=== PATIENT | male | born 1940 | race Caucasian/White ===

== ENCOUNTER 2017-02-06 08:49 | Outpatient (CLI) | payer MEDICARE, OTHER ==
[2017-02-06] MEDS ORDERED: Gadobenate Dimeglumine 529 MG/1 ML (20ML VIAL) ONE (09:00)
--- NOTE | 2017-02-06 11:41 | MRI ---
MRI OF THE BRAIN WITH AND WITHOUT CONTRAST: Comparison: 11-20-14 History: Severe headache which starts in the back of the left ear and proceeds to the top of his hea d for two weeks. Technique: Multiplanar, multisequence MR images were obtained of the brain without and with IV contr ast. FINDINGS: There are scattered foci of high FLAIR signal in the subcortical and periventricular white matter, l ikely secondary to small vessel ischemic disease. No restricted diffusion is seen to suggest an acut e infarction. No abnormal enhancement is seen on this examination. There is no evidence of hydroceph alus, intracranial hemorrhage, or extraaxial fluid collection. The expected flow voids are present. The corpus callosum, pituitary, and craniocervical junction are unremarkable. IMPRESSION: Small vessel ischemic disease without acute intracranial abnormality. POS: [facility]
== END 2017-02-06 08:50 | disposition home or self-care (01) ==
LOC: SCSMRI 08:49
PROVIDERS: ATTEND Otolaryngology Otolaryngic Allergy
DX: R51 Headache (principal); R68.84 Jaw pain; I67.82 Cerebral ischemia
CPT/HCPCS: 70553

== ENCOUNTER 2017-02-14 09:06 | Outpatient (CLI) | payer MEDICARE ==
[~2017-02-14 09:06] MED LIST: Iopamidol 370 76% 100 ML VIAL ONE
--- NOTE | 2017-02-14 11:48 | CT ---
CONTRAST ENHANCED CT IMAGES OF SOFT TISSUE NECK: History: Headache. Patient with left jaw pain. FINDINGS: Contrast enhanced images of the soft tissue neck demonstrate atherosclerotic calcification of the ao rtic arch. Calcifications are also seen in the right brachiocephalic artery. Bilateral distal verteb ral artery calcification is seen. Bilateral distal common and proximal internal carotid artery calci fications seen. No significant evidence of pulmonary parenchymal lesions seen. No definite evidence of superior mediastinal or neck lymphadenopathy seen. Some heterogeneity is seen in the right and left thyroid lobes. Patient has had ACDF with fusion of the C3-4 levels. Lower cervical changes of spondylosis seen. No significant evidence of parotid or carotid space masses or lesions seen. IMPRESSION: Vertebral, aortic and carotid calcifications. POS: [facility]
== END 2017-02-14 09:07 | disposition home or self-care (01) ==
LOC: SCSCT 09:06
PROVIDERS: ATTEND Otolaryngology Otolaryngic Allergy
DX: R68.84 Jaw pain (principal); R51 Headache; I70.0 Atherosclerosis of aorta
CPT/HCPCS: 70491

== ENCOUNTER 2017-03-30 05:40 | Day surgery (SDC) | payer MEDICARE ==
[2017-03-23 09:58] VITALS: BMI 26.5
--- NOTE | 2017-03-30 01:07 | HP ---
HISTORY OF PRESENT ILLNESS: Mr. Hendricks is a 76-year-old man is known to us for previous lumbar L4-L5 synovial cyst resection earlier this spring who returns now with recurrence on the right. According to MRI from [facility], he has had this aspirated once unfortunately, it did not help a great deal a nd is ready to move forward with the surgical treatment to fix this. PAST MEDICAL HISTORY: Hypertension, hypercholesterolemia, erectile dysfunction, neck pain, hearing l oss, esophageal stricture. CURRENT MEDICATIONS: Aspirin, calcium, lovastatin, Mobic, Centrum, vitamin D, and lisinopril. PAST SURGICAL HISTORY: ACDF, lumbar diskectomy and lumbar decompression, and lumbar synovial cystect meghan. PHYSICAL EXAMINATION: The patient is alert and oriented x3. Gait is antalgic. Lower extremity analy r exam is normal. ASSESSMENT: Lumbar synovial cyst and radiculopathy. PLAN: Dr. Sandoval met with the patient, reviewed imaging and ultimately advocated for a reoperation at L4-L5 with resection of synovial cyst. He explained to the patient the risks, benefits, and alterna tives to the procedure. The patient expressed understanding and would like to move forward with surg dominic as discussed. I do believe the patient is mentally competent and capable of making medical decis ions for himself and we will move forward with surgery as planned. Andry Elkins PA-C is dictating under Dr. Sandoval.
[2017-03-30] MEDS ORDERED: Thrombin 5000 UNITS/5 ML VIAL ONE (06:16)
[2017-03-30] MEDS ORDERED: Bupivacaine/Epinephrine 0.25% 30 ML VIAL ONE (06:16)
[2017-03-30] MEDS ORDERED: CEFAZOLIN/Water 2 GM/20 ML SYRINGE ONE ×2 (06:25→11:29)
[2017-03-30] MEDS ORDERED: Fentanyl 250 MCG/5 ML VIAL ONE (06:44)
[2017-03-30] MEDS ORDERED: Glycopyrrolate 0.2 MG/ML 5 ML SYRINGE ONE (07:05)
[2017-03-30] MEDS ORDERED: PHENYLEPHRINE-NS 100 MCG/ML 10 ML SYRINGE ONE (07:05)
[2017-03-30] MEDS ORDERED: Ondansetron HCl/PF 4 MG/2 ML Vial ONE (07:05)
[2017-03-30] MEDS ORDERED: Lidocaine 2% PF 10 ML AMP (For Epidural Use) ONE (07:05)
[2017-03-30] MEDS ORDERED: Propofol 200 MG/20 ML VIAL ONE (07:05)
[2017-03-30] MEDS ORDERED: Fentanyl 100 MCG/2 ML VIAL ONE ×2 (08:33→08:58)
--- NOTE | 2017-03-30 08:46 | OP ---
DATE OF PROCEDURE: 03/30/2017 SURGEON: Julio Sandoval M.D. [place] SUPERVISOR: Andry Elkins PA-C INDICATION: Pain. DIAGNOSIS: Lumbar radiculopathy. PROCEDURE: Reoperation of right L4-5 facetectomy, synovial cystectomy. ANESTHESIA: General. TECHNIQUE: The patient was brought into the operating room and placed under general anesthesia. He was flipped from a supine to a prone position on the operating room table. His old linear incision w as identified and prepped and draped in the usual sterile fashion. Following appropriate operative p ause, the incision was created. The soft tissues were swept right of midline. A self-retaining retr actor was placed in the wound for optimal exposure. After confirming the appropriate level, C-arm fl uoroscopy, a high-speed cutting drill bit as well as 2, 3 and 4 mm Kerrisons were used to identify th e facet joint at L4-5 and what remained was removed. Synovial cyst was identified and also resected. At the end of procedure, the lateral recesses as well as descending and exiting nerve root at that level where decompressed and free of compression. There was scar present from the prior operative pr ocedure which appeared to be noncontributory. The patient's wound was irrigated. Hemostasis was regine ntained throughout. The wound was then closed in anatomic layers and a pressure dressing was applied . There were no known procedural complications.
[2017-03-30] MEDS ORDERED: Ketorolac Tromethamine 30 MG/ML VIAL ONE (09:06)
[2017-03-30] MEDS ORDERED: Morphine 4 MG/ML VIAL ONE (09:37)
[2017-03-30] MEDS ORDERED: tiZANidine HCl 4 MG TAB ONE ×2 (09:50→09:56)
[2017-03-30] MEDS ORDERED: Acetaminophen/Codeine 30-300mg Tablet ONE (11:14)
== END 2017-03-30 11:47 | disposition home or self-care (01) ==
LOC: SDC 05:40
PROVIDERS: ATTEND Neurological Surgery
PROC: 00BY0ZX Excision of Lumbar Spinal Cord, Open Approach, Diagnostic (ICD-10-PCS; principal; 2017-03-30)
DX: M71.38 Other bursal cyst, other site (principal); M54.16 Radiculopathy, lumbar region; I10 Essential (primary) hypertension; E78.00 Pure hypercholesterolemia, unspecified; N52.9 Male erectile dysfunction, unspecified; H91.90 Unspecified hearing loss, unspecified ear; Z98.1 Arthrodesis status
CPT/HCPCS: 76001; 96374; J1170; J1885; J2001; J2270; J2405; J2704; J3010

== ENCOUNTER 2017-07-10 09:08 | Outpatient (CLI) | payer MEDICARE ==
--- NOTE | 2017-07-10 10:30 | RAD ---
THREE VIEWS LUMBAR SPINE INCLUDING FLEXION AND EXTENSION VIEWS: Date: 07-10-17 History: Lower back pain. Comparison: MRI lumbar spine 08-20-15. FINDINGS: There appear to be five non-rib bearing lumbar type vertebral bodies based on lateral imaging. There is Grade I anterolisthesis of L4 on L5 with the degree of listhesis on flexion measuring 7 mm and on extension the anterolisthesis resolves. There is a compression fracture of the L2 vertebral bodies re lated to remote compression fracture as seen on prior study in 2016. The remaining vertebral body hei ghts are within normal limits. No additional level of subluxation is seen. Multilevel osteophytes are seen anteriorly. Laminectomy defect is seen posteriorly at the L4-5 level. Vascular calcification is seen in the abdominal aorta. IMPRESSION: 1. Grade I anterolisthesis of L4 on L5 with evidence of abnormal translational motion between the fle xion and extension views with correction of the anterolisthesis on extension. 2. Remote compression fracture L2 vertebral body. 3. Degenerative changes of the lumbar spine with post-surgical change at the L4-5 level related to la minectomy defect. 4. Vascular calcifications. POS: [facility]
--- NOTE | 2017-07-10 13:18 | CT ---
TWO VIEWS LUMBAR SPINE WITHOUT CONTRAST: HISTORY: Low back pain. COMPARISON: MRI lumbar spine 12/21/16. FINDINGS: The adrenal glands are unremarkable. Visualized portions of the kidneys are unremarkable. Paraspinal musculature is symmetric. No atrophy. Moderate degenerative disease of the SI joints. Severe end plate compression deformity at L2 is similar. Prior partial laminectomy changes of the L4 and L5 spinous processes. There is narrowing of the L2-3 and L3-4 interspinous space with sclerosis of the spinous processes and subchondral cyst formation. No acute fracture. No acute malalignment. The aortic contour is nonaneurysmal, although it is heavi ly calcified. There are posterior disk-osteophyte complexes throughout the lumbar spine which are similar to the pr ior MRI examination with multiple areas of mild spinal canal narrowing. The neural foraminal and spi nal canal narrowing has not progressed from the comparison MRI exam. IMPRESSION: 1. Similar appearance to the healing/healed compression deformity at L2. 2. No progressive worsening neural foraminal or spinal canal stenosis. 3. Lower lumbar laminectomy changes, similar. 4. No new acute superimposed fracture or malalignment. 5. Stress injury of the pars interarticularis bilaterally at L4. No listhesis. POS: [facility]
== END 2017-07-10 09:09 | disposition home or self-care (01) ==
LOC: TBSIIMAG 09:08
PROVIDERS: ATTEND Neurological Surgery
DX: M54.5 Low back pain (principal); S39.82XA Other specified injuries of lower back, initial encounter; Z98.890 Other specified postprocedural states
CPT/HCPCS: 72100; 72131

== ENCOUNTER 2017-08-22 07:18 | Day surgery (SDC) | payer MEDICARE ==
[2017-08-15 12:39] VITALS: BMI 25.8
--- NOTE | 2017-08-21 23:11 | HP ---
HISTORY OF PRESENT ILLNESS: Mr. Hendricks is a 77-year-old man who is known to us for 2 previous synovi al cyst resection of the lumbar spine. He presents now with radicular symptoms, but with increasing severe lumbar back pain. This is now in the setting of a CT scan that reveals bilateral pars defects at L4-L5 with motion on flexion, extension views. He hopes to surgically correct this. PAST MEDICAL HISTORY: Hypertension, hypercholesterolemia, erectile dysfunction, neck pain, hearing l oss, esophageal structures. CURRENT MEDICATIONS: Aspirin, calcium, lovastatin, Mobic, Centrum, vitamin D, and lisinopril. PAST SURGICAL HISTORY: ACDF, lumbar diskectomy, lumbar decompression and lumbar synovial cystectomy x2. PHYSICAL EXAMINATION: GENERAL: The patient is alert and oriented x3. Gait is severely lethargic. Lower extremity motor e xam is normal. ASSESSMENT: Bilateral pars defects and back pain. PLAN: Dr. Sandoval met with the patient and imaging and advocated for an L4-L5 facetectomy bilaterally and a posterolateral instrumentation and fusion. He explained to the patient the risks, benefits, an d alternatives to the procedure. The patient expressed understanding and would like him for surgery as discussed. I do believe the patient is mentally competent and capable of making medical decisions for himself and we will move forward with the surgery as planned.
[2017-08-22] MEDS ORDERED: CEFAZOLIN/Water 2 GM/20 ML SYRINGE ONE ×2 (08:03→16:59)
[2017-08-22] MEDS ORDERED: Bupivacaine HCl 0.5%/Epinephrine 1:200,000/PF 30 ml Vial ONE (09:06)
[2017-08-22] MEDS ORDERED: Fentanyl 100 MCG/2 ML VIAL ONE (12:17)
[2017-08-22] MEDS ORDERED: Tamsulosin HCl 0.4 MG CAP ONE (13:04)
[2017-08-22] MEDS ORDERED: Acetaminophen 650 MG Suppository PR PRN (13:07)
[2017-08-22] MEDS ORDERED: diphenhydrAMINE 50 MG/ML VIAL IVP PRN (13:07)
[2017-08-22] MEDS ORDERED: HYDROcodone/Acetaminophen 7.5/325 mg Tablet PO PRN ×2 (13:07)
[2017-08-22] MEDS ORDERED: Sodium Chloride 0.9% 1,000 ML IV SCH (13:07)
[2017-08-22] MEDS ORDERED: tiZANidine HCl 4 MG TAB PO PRN (13:07)
[2017-08-22] MEDS ORDERED: Milk Of Magnesia 30 ML UDCUP PO PRN (13:07)
[2017-08-22] MEDS ORDERED: Morphine 4 MG/ML Carpuject SLOW IVP PRN (13:07)
[2017-08-22] MEDS ORDERED: diphenhydrAMINE 25 MG CAP PO PRN (13:07)
[2017-08-22] MEDS ORDERED: Mag-Al 1200 mg/1200 mg/30 ML UDCUP PO PRN (13:07)
[2017-08-22] MEDS ORDERED: Bisacodyl 10 MG SUPP PR PRN (13:07)
[2017-08-22] MEDS ORDERED: Acetaminophen 325 MG TAB PO PRN (13:07)
[2017-08-22] MEDS ORDERED: Ondansetron HCl/PF 4 MG/2 ML Vial IM PRN (13:08)
[2017-08-22] MEDS ORDERED: ePHEDrine/0.9% NaCl/PF SYRINGE 50 mg/10 ml ONE (15:15)
[2017-08-22] MEDS ORDERED: PHENYLEPHRINE-NS 100 MCG/ML 10 ML SYRINGE ONE (15:15)
[2017-08-22] MEDS ORDERED: Glycopyrrolate 0.2 MG/ML 5 ML SYRINGE ONE (15:15)
[2017-08-22] MEDS ORDERED: HYDROcodone/Acetaminophen 5/325 mg Tablet ONE (16:04)
[2017-08-22] MEDS ORDERED: CEFAZOLIN/Water 2 GM/20 ML SYRINGE SLOW IVP SCH (18:00)
[2017-08-23] MEDS ORDERED: Tamsulosin HCl 0.4 MG CAP PO SCH (06:00)
--- NOTE | 2017-08-23 15:02 | OP ---
DATE OF OPERATION: 08/22/2017 SURGEON: Julio Sandoval M.D. MATERIAL PLANNER: Andry Elkins PA-C INDICATION: Pain. DIAGNOSIS: Bilateral pars defects L4-5. PROCEDURES PERFORMED: Reoperation, bilateral L4-5 facetectomies, bilateral L4-5 posterior lateral in strumented fusion, placement of allograft, placement of autograft. ANESTHESIA: General. PROCEDURE IN DETAIL: The patient was brought into the operating room and placed on general anesthesi a. He was flipped from a supine to prone position on the operating room table. A linear incision wa s planned over the L4-5 segments. After prepping and draping and after an appropriate operative paus e, the incision was created. The soft tissues were swept away from midline. A copious amount of sca r as well as the patient's prior surgical defects were identified. The L4-5 pedicles were identified and facetectomies were performed at the L4-5 segment bilaterally. With the aid of C-arm fluoroscopy , pedicle screws were placed at L4-5 bilaterally. An intraoperative 3-D CT scan was performed which revealed excellent placement of the hardware. Rods were placed through the screw heads and final tig htened with set screws. Allograft and autograft material was placed in the lateral confines of the i nstrumentation construct. The wound was irrigated. Hemostasis was maintained throughout. The wound was then closed in anatomic layers and a pressure dressing was applied. There were no known procedu ral complications.
== END 2017-08-22 17:34 | disposition home or self-care (01) ==
LOC: SDC 07:18
PROVIDERS: ATTEND Neurological Surgery
PROC: 0SG0071 Fusion of Lumbar Vertebral Joint with Autologous Tissue Substitute, Posterior Approach, Posterior Column, Open Approach (ICD-10-PCS; principal; 2017-08-22)
DX: M47.26 Other spondylosis with radiculopathy, lumbar region (principal); M43.16 Spondylolisthesis, lumbar region; I10 Essential (primary) hypertension; E78.00 Pure hypercholesterolemia, unspecified; E78.5 Hyperlipidemia, unspecified; N52.9 Male erectile dysfunction, unspecified; Z79.82 Long term (current) use of aspirin; Z79.899 Other long term (current) drug therapy; Z98.1 Arthrodesis status
CPT/HCPCS: 20930; 20936; 22612; 76001; C1713 ×2; J0670; J3010

== ENCOUNTER 2017-10-04 10:00 | Outpatient (CLI) | payer MEDICARE ==
--- NOTE | 2017-10-04 12:20 | RAD ---
LUMBAR SPINE SERIES: Comparison: 07-10-17 History: Lumbar radiculopathy. FINDINGS: There has been interval placement of posterior spinal hardware at the L4 and L5 segments with a stabl e degree of grade I spondylolisthesis. No obvious perihardware lucency is visualized. Multilevel dege nerative change in the lumbar spine is redemonstrated. There is chronic, stable height loss at L2, mi ld to moderate in degree. No additional significant interval change. IMPRESSION: Post-operative posterior fusion of L4-5 with a grossly stable degree of L4-5 level spondylolisthesis. No obvious perihilar lucency. POS: [facility]
== END 2017-10-04 10:01 | disposition home or self-care (01) ==
LOC: TBSIIMAG 10:00
PROVIDERS: ATTEND Neurological Surgery
DX: M54.16 Radiculopathy, lumbar region (principal); M43.16 Spondylolisthesis, lumbar region; Z98.890 Other specified postprocedural states
CPT/HCPCS: 72100

== ENCOUNTER 2017-12-20 09:06 | Outpatient (CLI) | payer MEDICARE ==
--- NOTE | 2017-12-20 10:57 | RAD ---
CONTRAST ESOPHAGRAM: INDICATIONS: Dysphagia. FINDINGS: Swallowing mechanism and esophagus appear unremarkable. There is a small, sliding diaphragmatic hernia. A small Schatzki's ring is seen. No significant str icture is present. A 12 mm barium tablet was swallowed and passed through the EG junction without di fficulty. No reflux was demonstrated when the patient was placed recumbent. IMPRESSION: Small sliding diaphragmatic hernia with a small Schatzki's ring without evidence of significant lumin al narrowing. POS: [facility]
== END 2017-12-20 09:07 | disposition home or self-care (01) ==
LOC: RAD 09:06
PROVIDERS: ATTEND Internal Medicine Gastroenterology
DX: R13.10 Dysphagia, unspecified (principal); K44.9 Diaphragmatic hernia without obstruction or gangrene; Z86.010 Personal history of colon polyps
CPT/HCPCS: 74220

== ENCOUNTER 2018-08-25 20:14 | Observation (INO) | payer MEDICARE, OTHER ==
[2018-08-25] MEDS ORDERED: Aspirin Chewable 81 MG TAB ONE (20:41)
[2018-08-25 20:48] LABS: #Basophils 0.1 thou/uL (0.0-0.2); #Eosinphils 0.2 thou/uL (0.0-0.7); #Lymphocytes 1.5 thou/uL (1.20-3.40); #Neutrophils 5.6 thou/uL (1.40-6.50); %Basophils 0.8 % (0.0-1.0); %Eosinophils 2.8 % (0.0-10.0); %Lymphocytes 18.2 % (21.0-51.0); %Monocytes 11.4 % (0.0-10.0); %Neutrophils 66.9 % (42.0-75.0); Hemoglobin 11.9 g/dL (14.0-18.0); Mean Corpuscular HGB CONC 32.7 g/dL (32.0-36.0); Mean Corpuscular Hemoglobin 27.5 pg (27.0-31.0); Mean Platelet Volume 6.7 fL (7.4-10.4); Platelet Count 238 thou/uL (130-400); RBC Distribution Width 16.9 % (11.5-14.5); Red Blood Cell (RBC) Count 4.32 mill/uL (4.70-6.10); White Blood Cell (WBC) Count 8.3 thou/uL (4.8-10.8)
[2018-08-25 20:57] LABS: CK (CPK) 86 U/L (30-200); Lipase 52 U/L (8-78)
--- NOTE | 2018-08-25 20:57 | RAD ---
Chest one view HISTORY: Chest pain. Weakness. COMPARISON: 08/02/2018. FINDINGS: Cardiac silhouette is magnified by projection. Pulmonary vasculature is unremarkable. Media stinum is midline. Lungs remain hyperinflated. No lobar consolidation or evidence of pneumothorax. diamond picker leads overlie the chest. IMPRESSION: Chronic type findings are stable. No active cardiopulmonary abnormalities are demonstrate d.
[2018-08-25 21:01] LABS: ALT (SGPT) 15 U/L (8-55); AST (SGOT) 18 U/L (5-34); Albumin 3.6 g/dL (3.4-4.8); Alkaline Phosphatase 80 U/L (40-150); Anion Gap 14 mmol/L (10-20); BUN (Urea Nitrogen) 24 mg/dL (8.4-25.7); Bilirubin, Total 0.3 mg/dL (0.2-1.2); Calc. Creatinine Clearance 0 mL/min (70-130); Calcium 8.7 mg/dL (7.8-10.44); Carbon Dioxide 21 mmol/L (23-31); Chloride 105 mmol/L (98-107); Estimated GFR-MDRD 49; Globulin 3.4 g/dL (2.4-3.5); Glucose 114 mg/dL (83-110); Potassium 4.4 mmol/L (3.5-5.1); Sodium 136 mmol/L (136-145)
[2018-08-25] MEDS ORDERED: Budesonide 0.5 MG/2 ML NEB INH SCH (22:00)
[2018-08-25] MEDS ORDERED: guaiFENesin ER 600 MG TAB PO SCH (22:00)
[2018-08-25] MEDS ORDERED: Ondansetron ODT 4 MG TAB PO PRN (22:04)
[2018-08-25] MEDS ORDERED: Ondansetron PF 4 MG/2 ML Vial IVP PRN (22:04)
[2018-08-25] MEDS ORDERED: Nitroglycerin 0.4 MG TAB (25 Tab Bottle) PO PRN (22:04)
[2018-08-25] MEDS ORDERED: Acetaminophen 325 MG TAB PO PRN (22:04)
[2018-08-25] MEDS ORDERED: Calcium Carbonate 500 MG ChewTAB PO PRN (22:04)
--- NOTE | 2018-08-25 22:23 | HP ---
PRIMARY CARE PHYSICIAN: Dr. Batista. CHIEF COMPLAINT: Chest discomfort. HISTORY OF PRESENT ILLNESS: The patient is a 78-year-old male with hypertension and hyperlipidemia, presented to the emergency room with above symptoms. Over the last 3-4 weeks, the patient has cough that is progressively getting worse. The cough was initially productive; however, lately it is more or less nonproductive. He was seen at the Urgent Care two weeks ago and was started on cough suppressant. Ten days ago, he was started on Levaquin and prednisone, which he completed yesterday. The chest discomfort is mainly when he has coughing spells. It is right-sided, aggravated by cough. He denies any relieving factor. He denies any fever or chills. He had a stress test approximately 4 years ago. He denies recent immobilization, travel, or sick contacts. In the emergency room, initial vital signs showed temperature 98.4, respirations of 20, pulse rate of 85 with O2 saturation 96% on room air. His EKG showed sinus rhythm without significant ST-T wave changes. He took aspirin prior to ER arrival. Chest x-ray was negative for infiltrate. PAST MEDICAL HISTORY: 1. Hypertension. 2. Hyperlipidemia. 3. Chronic hearing loss. The patient uses hearing aid. 4. History of esophageal stricture, requiring dilatation. PAST SURGICAL HISTORY: 1. Left knee replacement in 2011. 2. Cervical fusion in 2014. 3. Lumbar diskectomy in 2016. 4. Synovial cyst resection in 2016. 5. Left breast mass excision in 2017. ALLERGIES: THE PATIENT DENIES ANY DRUG ALLERGIES. MEDICATIONS: Current home medications; 1. Omeprazole daily. 2. Lovastatin 20 mg daily. 3. Lisinopril 10 mg daily. 4. Aspirin 81 mg daily. SOCIAL HISTORY: The patient currently lives at home. He is physically active. Denies any current use of smoking, alcohol, or drug use. He makes his own decision with the help of his family. FAMILY HISTORY: Negative for premature coronary artery disease. REVIEW OF SYSTEMS: All other review of systems were reviewed and were found negative. PHYSICAL EXAMINATION: VITAL SIGNS: As discussed above. GENERAL: A 78-year-old male, in no apparent distress, intermittent coughing spells. HEENT: Head, atraumatic and normocephalic. Sclerae anicteric. Moist mucous membranes. No oral lesion. NECK: Supple. No JVD appreciated. No carotid bruit. LUNGS: Essentially clear to auscultation bilaterally. No accessory muscle use. No wheezing, rhonchi, or rales. HEART: S1, S2 present. Regular rate and rhythm. No rubs, gallops, or significant murmurs appreciated. ABDOMEN: Soft, nontender. Bowel sounds present. EXTREMITIES: No edema or calf tenderness. NEUROLOGIC: Grossly nonfocal. Moves all 4 extremities. PSYCHIATRIC: Alert, awake, and oriented x3. SKIN: Warm and dry. LYMPH NODES: No palpable lymph nodes in the neck. PERIPHERAL VASCULAR: Radial pulses palpable bilaterally. MUSCULOSKELETAL: No joint swelling or tenderness. LABORATORY FINDINGS: CBC showed WBC 8.3 with hemoglobin 11.9, hematocrit 36.3, platelets 238. Chemistries showed sodium 136, potassium 4.4, chloride 105, bicarb 21, BUN 24, creatinine 1.41. LFTs in normal range. Troponin was negative. EKG and chest x-ray by my review as discussed above. IMPRESSION: 1. Atypical chest pain, probably secondary to recent bronchopneumonia. Please note that patient completed Levaquin and prednisone yesterday. 2. Hypertension. 3. Hyperlipidemia. 4. Chronic kidney disease stage 3. 5. Intermittent coughing spells of 4 weeks duration. 6. Chronic anemia. PLAN: The patient will be monitored in the telemetry unit. Serial troponins will be obtained. We will obtain an echocardiogram to rule out cardiac etiology. We will start him on nebulizer treatments along with budesonide inhalations. We will also add Mucinex. We will hold stress test for now due to recent bronchitis versus pneumonia. He will also benefit from a GI evaluation as outpatient given his history of esophageal stricture. Plan of care was discussed with the patient in detail. He stated understanding. Job ID: [id number]
[2018-08-25 22:59] VITALS: BMI 26.5
[2018-08-26 00:05] LABS: Troponin I Less than 0.010 ng/mL (< 0.028)
[2018-08-26 03:05] LABS: Troponin I Less than 0.010 ng/mL (< 0.028)
[2018-08-26] MEDS ORDERED: Budesonide 0.5 MG/2 ML NEB INH SCH (06:30)
[2018-08-26 07:59] VITALS: TEMP 99
[2018-08-26] MEDS ORDERED: Lisinopril 10 MG TAB PO SCH (09:00)
[2018-08-26] MEDS ORDERED: guaiFENesin ER 600 MG TAB PO SCH (09:00)
[2018-08-26] MEDS ORDERED: Aspirin 81 mg Enteric Coated Tablet PO SCH (09:00)
[2018-08-26] MEDS ORDERED: Amlodipine 5 MG TAB PO SCH (09:00)
[2018-08-26 11:54] VITALS: BP 115/56
--- NOTE | 2018-08-26 13:55 | DIS ---
DATE OF ADMISSION: 08/25/2018 DATE OF DISCHARGE: 08/26/2018 DISCHARGE DIAGNOSES: 1. Atypical chest pain secondary to recent bronchopneumonia. 2. Bronchopneumonia, resolving. 3. Hypertension, stable. 4. Chronic kidney disease, stage 3. 5. Hyperlipidemia. CONSULTATIONS: None. PERTINENT LAB AND X-RAY FINDINGS: Creatinine 1.41, estimated GFR 49. Troponin I negative x3. BNP 33. Lipase 52. CBC showed a white blood cell count 8.3, hemoglobin 12, hematocrit 36, platelet count 238 with normal differential. Portable chest x-ray dated 08/25/2018, showed no acute cardiopulmonary process. 2D transthoracic echocardiogram dated 08/26/2018, showed ejection fraction of 60% to 65%. Trace tricuspid valve regurgitation. HOSPITAL COURSE: The patient was observed on the telemetry unit after initially presenting with atypical chest pain in the context of recent bronchopneumonia, treated with outpatient antibiotics. The patient with persistent coughing, presenting with musculoskeletal chest pain. The patient underwent general metabolic screening in addition to chest imaging showing no acute infiltrates. Telemetry monitoring showed sinus mechanism without evidence of acute arrhythmia or dysrhythmia. The patient underwent serial cardiac biomarkers, which were negative x3 and proceeded to 2D transthoracic echocardiogram showing normal findings. The patient was treated symptomatically and supportively with antitussive agents and remained clinically stable. I have examined the patient at the time of discharge and discussed followup instructions. The patient verbalized understanding and agreement ready for discharge on 08/26/2018. DISCHARGE MEDICATIONS: 1. Enteric-coated aspirin 81 mg p.o. daily. 2. Lisinopril 10 mg p.o. q.a.m. 3. Lovastatin 20 mg p.o. at bedtime. 4. Multivitamin 1 tablet p.o. daily. 5. Omeprazole 20 mg p.o. daily. 6. Mucinex ER 600 mg p.o. b.i.d. 7. Dulera 200/5 mcg 2 puffs inhaled b.i.d. FOLLOWUP: The patient may follow up with primary care provider, Dr. Sabino Batista, within 7 days of discharge. CONDITION ON DISCHARGE: Stable. ACTIVITY: Ad-erna. DIET: Heart healthy. CODE STATUS: Full. DISPOSITION: To home, 08/26/2018. Job ID: [id number]
== END 2018-08-26 14:36 | disposition home or self-care (01) ==
LOC: ERS 20:14 → 2SW 21:24
PROVIDERS: ADMIT Internal Medicine; ATTEND Internal Medicine
DX: J18.0 Bronchopneumonia, unspecified organism (principal); R07.89 Other chest pain; H91.90 Unspecified hearing loss, unspecified ear; I12.9 Hypertensive chronic kidney disease with stage 1 through stage 4 chronic kidney disease, or unspecified chronic kidney disease; N18.3 Chronic kidney disease, stage 3 (moderate); D63.1 Anemia in chronic kidney disease; E78.5 Hyperlipidemia, unspecified; Z79.82 Long term (current) use of aspirin; Z79.899 Other long term (current) drug therapy; Z97.4 Presence of external hearing-aid
CPT/HCPCS: 71045; 80053; 82550; 83690; 83880; 84484 ×3; 85025; 93005; 93306; 94640 ×2; 94760 ×2; 97139; 99285; G0378 ×2; 36415; J7620; J7626

== ENCOUNTER 2018-11-15 03:56 | Inpatient (IN) | payer MEDICARE, BC ==
[2018-11-15 04:26] LABS: Hemoglobin 13.3 g/dL (14.0-18.0); Mean Corpuscular HGB CONC 32.8 g/dL (32.0-36.0); Mean Corpuscular Hemoglobin 28.7 pg (27.0-31.0); Mean Corpuscular Volume 87.3 fL (78.0-98.0); Mean Platelet Volume 6.6 fL (7.4-10.4); Platelet Count 271 thou/uL (130-400); RBC Distribution Width 14.9 % (11.5-14.5); Red Blood Cell (RBC) Count 4.65 mill/uL (4.70-6.10); White Blood Cell (WBC) Count 6.1 thou/uL (4.8-10.8)
[2018-11-15 04:27] LABS: ALT (SGPT) 12 U/L (8-55); AST (SGOT) 18 U/L (5-34); Albumin 3.1 g/dL (3.4-4.8); Alkaline Phosphatase 119 U/L (40-150); Anion Gap 17 mmol/L (10-20); BUN (Urea Nitrogen) 22 mg/dL (8.4-25.7); Bilirubin, Total 0.3 mg/dL (0.2-1.2); Calc. Creatinine Clearance 0 mL/min (70-130); Calcium 8.4 mg/dL (7.8-10.44); Carbon Dioxide 15 mmol/L (23-31); Chloride 110 mmol/L (98-107); Estimated GFR-MDRD 42; Globulin 2.5 g/dL (2.4-3.5); Glucose 176 mg/dL (83-110); Magnesium 2.3 mg/dL (1.6-2.6); Potassium 3.6 mmol/L (3.5-5.1); Protein, Total 5.6 g/dL (5.8-8.1); Sodium 138 mmol/L (136-145)
[2018-11-15 05:04] LABS: Band 4 % (5-11); Eosinophils 3 % (0-10); Lymphocytes 69 % (21-51); MDiff Complete? YES; Monocytes 8 % (0-10); Neutrophil 16 % (42-75)
[2018-11-15] MEDS ORDERED: Piperacillin/Tazobactam 4.5 GM VIAL ONE (05:21)
[2018-11-15] MEDS ORDERED: Hydrocortisone Sod Succ/PF 100 mg/2 ml Vial ONE ×2 (06:20)
[2018-11-15] MEDS ORDERED: Acetaminophen 325 MG TAB PO PRN (06:34)
[2018-11-15] MEDS ORDERED: Acetaminophen 650 MG Suppository PR PRN (06:34)
[2018-11-15] MEDS ORDERED: Ondansetron PF 4 MG/2 ML Vial IVP PRN (06:34)
[2018-11-15] MEDS ORDERED: Ondansetron ODT 4 MG TAB PO PRN (06:34)
[2018-11-15 06:37] LABS: Bilirubin Negative (Negative); Blood, Urine 1+ (Negative); Clarity Clear (Clear); Glucose, Urine (Dipstick) Normal (Negative); Leukocyte Negative Leu/uL (Negative); Nitrite Negative (Negative); Protein, Urine (Dipstick) 30 mg/dL (Neg-Trace); RBC/HPF 21-50 HPF (0-3); Squamous Epithelial 0-3 HPF (0-3); Urobilinogen 3 mg/dL (Less than 2); WBC/HPF 0-3 HPF (0-3)
[2018-11-15 07:32] LABS: Troponin I 0.024 ng/mL (< 0.028)
--- NOTE | 2018-11-15 07:38 | CT ---
PRELIMINARY REPORT/[facility]/EMERGENCY AFTER HOURS PROCEDURE: EXAM: CT Head Without Contrast EXAM DATE/TIME: 11/15/2018 4:14 AM CLINICAL HISTORY: 78 years old, male; Syncope and collapse; Patient HX: 78 y/o m presents to ED via EMS transport for h ypotension. EMS was called for transport by pt's after finding PT on the toilet, with PT describ ed as diaphoretic and severely weak. also states PT awoke from sleeping approx 45 minutes prior to calling EMS in order to use the restroom. On ambulation to bathroom, PT fell. TECHNIQUE: Imaging protocol: Axial computed tomography images of the head without contrast. COMPARISON: No relevant prior studies available. FINDINGS: Brain: Volume loss and chronic small vessel ischemic change. No brain edema. No intracranial hemorrha ge. Ventricles: Normal. No ventriculomegaly. Bones/joints: Unremarkable. No acute fracture. Sinuses: Visualized sinuses are unremarkable. No fluid levels. Mastoid air cells: Visualized mastoid air cells are well aerated. No mastoid effusion. Soft tissues: Unremarkable. IMPRESSION: No acute brain findings. Thank you for allowing us to participate in the care of your patient. Dictated and Authenticated by: Leoncio Camargo MD 11/15/2018 4:20 AM Central Time ([place] & [place]) FINAL REPORT EMERGENCY AFTER HOURS CT BRAIN: Date: 11/15/18 FINDINGS/IMPRESSION: I agree with the above provided preliminary interpretation from [facility]. There is no acute intracranial hemorrhage or mass effect. 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 POS: [facility]
--- NOTE | 2018-11-15 07:48 | HP ---
CODE STATUS: Full code. TIME OF EVALUATION: 6:00 a.m. CHIEF COMPLAINT: I passed out. HISTORY OF PRESENT ILLNESS: A 78-year-old male patient with past medical history of GERD, hyperlipidemia, hypertension, came to the hospital after having an episode of diaphoresis associated with loss of consciousness. stated that happened when the patient was trying to get out of bed with no clear triggers, no alleviating factors. Symptoms were severe. The patient was brought in by EMS and he was found to have a systolic blood pressure in the 50s. The patient has had significant large amount of secretory diarrhea was the patient took 2 tablets of senna for constipation. Also, the patient has associated chills. REVIEW OF SYSTEMS: CONSTITUTIONAL: No fever. The patient has chills, generalized weakness. RESPIRATORY: No cough, sputum production, or shortness of breath. CARDIOVASCULAR: No chest pain or palpitation. GASTROINTESTINAL: The patient had nausea. No vomiting. The patient has large amount of diarrhea. No blood. No abdominal pain. 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 GENITOURINARY: No burning on urination. EXTREMITIES: No leg swelling. All other systems were reviewed and negative except for the findings mentioned above. PAST MEDICAL HISTORY: As mentioned in the HPI. PAST SURGICAL HISTORY: The patient has left knee surgery, low back surgery. PSYCHIATRIC HISTORY: The patient has no psychiatric history. FAMILY HISTORY: Reviewed and noncontributory to current presentation. SOCIAL HISTORY: The patient has no history of alcohol use or drug use. No smoking history. Lives at home with family. KNOWN ALLERGIES: No known drug allergies. REPORTED MEDICATIONS: 1. Lisinopril. 2. Vitamin D3. 3. Aspirin. 4. Lovastatin. 5. Omeprazole. PHYSICAL EXAMINATION: VITAL SIGNS: On presentation, systolic blood pressure was in the 50s, recovered after 2 L to 100 and then went down again to the 50s. GENERAL APPEARANCE: The patient is alert, oriented, in no acute distress. HEENT: Eyes, normal conjunctivae. Moist oral mucosa. Anicteric. No JVD. RESPIRATORY: Bilateral air entry. No rales. No wheezes. Symmetric expansion. CARDIOVASCULAR: Normal rate. Regular rhythm. No murmurs. No gallop. No edema. The patient is hypotensive. ABDOMEN: Soft, normal bowel sounds. MUSCULOSKELETAL: Baseline range of motion and tenderness. SKIN: Warm, intact. No pallor. No rash. No redness. Capillary refill seems to be intact. NEUROLOGIC: No evidence of new focal weakness. Cranial nerves seems to be intact. PSYCHIATRIC: The patient is in good mood. No anxiety. Optimal judgment. DIAGNOSTIC STUDIES: EKG was reviewed. The patient has normal sinus rhythm with a rate of 93, QT 506. CT brain was done, the patient has no acute abnormalities. LABORATORY DATA: Labs were done. The patient had white count 6.1, hemoglobin 13.3, MCV 87.3. Sodium 138, potassium 3.6, chloride 110, carbon dioxide 15, BUN 22, creatinine 1.62, GFR 42. The previous creatinine on previous admission was 1.4, glucose 176, lactic acid 5.9, calcium 9.4, magnesium 2.3. LFTs were negative. ASSESSMENT AND PLAN: The patient will be placed in the hospital with following medical problems: 1. Syncope associated with severe hypotension. The patient presented with diarrhea, most likely as the etiology. The patient has been hypovolemic. We will treat underlying condition. 2. Severe hypotension needing massive amount of IV fluids. The patient is getting 4 L now, initially blood pressure recovered, after that the blood pressure dropped again to 50s. We will continue to hydrate since the patient has continued to have persistent large amount of diarrhea. During my examination, the only finding related to diarrhea as of now is the patient took 2 pills of senna, the patient has not traveled anywhere. The patient has no family traveling anywhere. The patient has no other sick contacts. No fever, although the patient reported some chills. We will send stool test and we will follow. We will continue to hydrate to keep hemodynamics. 3. Non-anion gap metabolic acidosis. This is likely secondary to bicarb loss from diarrhea. We will monitor. If it drops below 15, we can give some bicarb. 4. Chronic kidney disease, stage 3 with GFR 42. The creatinine is about the same level that the patient had in previous admissions. We will monitor. In case creatinine worsens, we will give hydration. 5. Lactic acidosis, likely secondary to underlying hypertension. We will trend, we will follow. 6. Deep venous thrombosis prophylaxis. 7. Hypertension that is uncontrolled with hypotension due to hypovolemia. We will reconcile home medications once the patient is stable. Job ID: [id number]
--- NOTE | 2018-11-15 07:57 | RAD ---
EXAM: CHEST ONE VIEW HISTORY: Syncope. Patient fell and hit head. COMPARISON: 08/25/2018 FINDINGS: Cardiac silhouette is magnified by projection. Pulmonary vasculature is at the upper limits of normal . Linear densities are seen in the right lung base probably due to atelectasis. There is mild elevation of the right hemidiaphragm. No consolidation or pleural fluid is appreciated. The osseous s tructures are intact. Vascular calcifications are seen in the thoracic aorta. No other interval change. IMPRESSION: 1. Mild elevation right hemidiaphragm with atelectasis at the right lung base. 2. No acute cardiopulmonary process.
[2018-11-15 08:22] LABS: Lactic Acid 3.5 mmol/L (0.5-2.2)
[2018-11-15] MEDS ORDERED: Enoxaparin Sodium 40 MG/0.4 ML SYRINGE SC SCH (09:00)
[2018-11-15] MEDS: D5 1/2 NS w/20 mEq KCL 1,000 ML IV SCH ×2 (10:19→19:17)
[2018-11-15 10:48] LABS: Troponin I 0.212 ng/mL (< 0.028)
[2018-11-15 15:16] VITALS: BMI 27.1
[2018-11-15 15:20] LABS: Lactic Acid 2.6 mmol/L (0.5-2.2)
[2018-11-15] MEDS ORDERED: Aspirin 81 mg Enteric Coated Tablet PO SCH (15:45)
[2018-11-15 15:47] LABS: CKMB 3.3 ng/mL (0-6.6)
--- NOTE | 2018-11-15 20:29 | CON ---
DATE OF CONSULTATION: 11/15/2018 HISTORY OF PRESENT ILLNESS: Mr. Hendricks is a 78-year-old male, who presented with hypotension. He was trying to get out of bed. His says that he fell over and had loss of consciousness. He has no recollection of this. He worked outdoors all day yesterday and says he drank water, but looking back, probably he was not drinking enough water. Apparently, he has also had diarrhea according to the history and physical, although he did not tell me this when I was examining him. He has been hydrated to the tune of almost 5 L. He does not have a Wall in and has not urinated much today. PAST MEDICAL HISTORY: Remarkable for; 1. Knee surgery. 2. History of admission in August of this year with chest discomfort. 3. History of hypertension. 4. Lipid disorder. 5. History of a dilated esophageal stricture. 6. History of cervical fusion. 7. History of lumbar diskectomy. 8. History of synovial cyst resection. 9. History of breast mass excision. ALLERGIES: NO HISTORY OF DRUG ALLERGIES. SOCIAL HISTORY: He has not a smoker, not a daily drinker. MEDICATIONS: He is only on lisinopril, lovastatin, aspirin, and Prilosec prior to admission. FAMILY HISTORY: Negative for lung disease or heart disease in early age. REVIEW OF SYSTEMS: 10 point review of systems completed, otherwise negative. PHYSICAL EXAMINATION: GENERAL: He is in no distress. VITAL SIGNS: Blood pressures were normal when I saw him today and he was in sinus rhythm with a heart rate in the 80s. Last blood pressure this afternoon is 109/ 60, respiratory rates in the teens to low 20s, and oximetry is 100%. HEENT: Pupils are equal. Sclerae are anicteric. NECK: Supple. No lymphadenopathy. LUNGS: Clear. HEART: Regular rhythm. S1 and S2 are normal. ABDOMEN: Soft and nontender. EXTREMITIES: Without clubbing, cyanosis, or edema. LABORATORY DATA: All cultures are negative so far. White count 6.1, hemoglobin 13.3, platelets 271. Sodium 138, potassium 3.6, chloride 110, bicarb 15, BUN 22 , creatinine 1.62. Creatinine best was 2 years ago, 1.16. Earlier this year, it was 1.4, so he is not too far off his baseline at this point. IMPRESSION: Severe intravascular volume depletion, likely secondary to poor p.o. intake yesterday and diarrhea. There is no clinical evidence of sepsis at this point in time. He probably had enormous insensible losses since he was out in the heat all day, working yesterday. I suspect his renal function will be near his baseline tomorrow. Hopefully, he can be discharged home tomorrow if cultures remain negative. This is a 70-minute consult, with greater than 50% of the time spent in the unit coordinating care. Job ID: [id number] [facility]ENTERChris
[2018-11-16] MEDS: D5 1/2 NS w/20 mEq KCL 1,000 ML IV SCH ×2 (02:49→10:19)
[2018-11-16 06:58] LABS: Lactic Acid 1.3 mmol/L (0.5-2.2)
[2018-11-16 06:58] LABS: Anion Gap 12 mmol/L (10-20); BUN (Urea Nitrogen) 18 mg/dL (8.4-25.7); CK (CPK) 88 U/L (30-200); Calc. Creatinine Clearance 61 mL/min (70-130); Calcium 7.6 mg/dL (7.8-10.44); Carbon Dioxide 15 mmol/L (23-31); Chloride 113 mmol/L (98-107); Estimated GFR-MDRD 54; Glucose 114 mg/dL (83-110); Magnesium 1.9 mg/dL (1.6-2.6); Potassium 4.1 mmol/L (3.5-5.1); Sodium 136 mmol/L (136-145)
[2018-11-16 07:20] LABS: CKMB 0.9 ng/mL (0-6.6)
[2018-11-16 07:31] LABS: #Eosinphils 0.1 thou/uL (0.0-0.7); #Monocytes 0.9 thou/uL (0.11-0.59); #Neutrophils 10.1 thou/uL (1.40-6.50); %Basophils 0.2 % (0.0-1.0); %Eosinophils 0.5 % (0.0-10.0); %Lymphocytes 15.5 % (21.0-51.0); %Monocytes 7.1 % (0.0-10.0); %Neutrophils 76.8 % (42.0-75.0); Hemoglobin 11.1 g/dL (14.0-18.0); Mean Corpuscular HGB CONC 32.3 g/dL (32.0-36.0); Mean Corpuscular Hemoglobin 28.7 pg (27.0-31.0); Mean Corpuscular Volume 88.6 fL (78.0-98.0); Mean Platelet Volume 6.5 fL (7.4-10.4); Platelet Count 213 thou/uL (130-400); RBC Distribution Width 15.1 % (11.5-14.5); Red Blood Cell (RBC) Count 3.88 mill/uL (4.70-6.10); White Blood Cell (WBC) Count 13.1 thou/uL (4.8-10.8)
[2018-11-16] MEDS: Multivitamin W/ Minerals 1 TAB PO SCH (08:56)
[2018-11-16] MEDS: Aspirin 81 mg Enteric Coated Tablet PO SCH (08:56)
[2018-11-16] MEDS: Cyanocobalamin (Vitamin B-12) 1,000 MCG TAB PO SCH (08:57)
--- NOTE | 2018-11-16 13:07 | PRG ---
DATE OF SERVICE: 11/16/2018 SUBJECTIVE: This is a 78-year-old male, hospitalized because of severe diarrhea, hypotension. He responded to IV fluids and blood pressure is normalized. Diarrhea also is controlled. He has only 1 decreased stool today. He has no blood in the stool. There is no abdominal pain, no nausea, no vomiting. The patient did have some blood in the stool and stool was positive for occult blood. However, the patient had an EGD and colonoscopy by Dr. Sinha in the past. He had a colonoscopy polypectomy I believe in December. He offers no complaints. His stool studies were basically negative. C difficile, Campylobacter, and all the other stool studies are negative. PHYSICAL EXAMINATION: GENERAL: He appears very comfortable. He is afebrile. VITAL SIGNS: Pulse is 67 and blood pressure 119/66. CARDIOVASCULAR SYSTEM AND LUNGS: Within normal limits. ABDOMEN: Soft. No organomegaly. No tenderness. No masses. LABORATORY DATA: WBC 13,100, hemoglobin 11.1, hematocrit 34.4, platelet count 213,000, polymorphs 76, lymphocytes 15. Serum chemistries normal. Lytes are normal. RECOMMENDATION: 1. Advance diet to regular diet. 2. If tolerates diet with worsening diarrhea and abdominal pain, may consider discharge home later today or tomorrow. Job ID: [id number]
--- NOTE | 2018-11-16 14:53 | PDOC.PN ---
- Subjective Encounter Start Date: 11/16/18 Encounter Start Time: 14:51 Doing better overall. Diarrhea has slowed. Has been released to have regular diet by GI, but has not eaten yet. Voiding very frequently. - Objective Resuscitation Status - Order Detail: 11/15/18 06:34 Resuscitation Status Routine Resuscitation Status: FULL: Full Resuscitation Vital Signs & Weight: Vital Signs (12 hours) Temp Pulse Resp BP BP BP Pulse Ox 11/16/18 11:34 98.3 F 67 18 119/66 97 11/16/18 07:36 98.3 F 73 18 119/57 L 123/59 L 122/63 98 11/16/18 07:35 98 11/16/18 04:00 97.7 F 70 18 107/55 L 96 Weight Weight 195 lb 12.8 oz Most Recent Monitor Data Heart Rate from ECG 84 NIBP 127/60 NIBP BP-Mean 82 Respiration from ECG 19 SpO2 100 I&O: 11/15/18 11/16/18 11/17/18 06:59 06:59 06:59 Intake Total 3572 Output Total 1475 Balance 2097 Result Diagrams: 11/16/18 07:18 11/16/18 06:27 Phys Exam - Physical Examination Constitutional: NAD Respiratory: no wheezing, no rales, no rhonchi Cardiovascular: RRR, no significant murmur Gastrointestinal: soft, non-tender, no distention, positive bowel sounds Musculoskeletal: no edema, pulses present Neurological: non-focal Psychiatric: normal affect, A&O x 3 Skin: normal turgor Dx/Plan (1) Hypovolemic shock Code(s): R57.1 - HYPOVOLEMIC SHOCK Status: Acute (2) Diarrhea Code(s): R19.7 - DIARRHEA, UNSPECIFIED Status: Acute (3) Acute renal failure Status: Acute (4) Leukocytosis Code(s): D72.829 - ELEVATED WHITE BLOOD CELL COUNT, UNSPECIFIED Status: Acute (5) Syncope Code(s): R55 - SYNCOPE AND COLLAPSE Status: Acute (6) Lactic acidosis Code(s): E87.2 - ACIDOSIS Status: Acute - Plan * Monitor with regular diet. * Stop IVF as he is euvolemic. * Syncope secondary to hypotension. * Hypotension secondary to hypovolemia. * Hypovolemia secondary to diarrhea and insensible losses. * Renal function improving. Recheck in am. * Leukocytosis likely due to demargination from hypovolemic shock. Recheck in am. * Hgb down, but likely dilutional. * Heme positive stool, but no evidence of significant bleed. * Stool studies negative for invasive species. * Lactic acid normalized. * Unclear what his baseline renal function actually is. Suspect more acute renal failure than chronic.
--- NOTE | 2018-11-17 01:07 | EKG ---
Test Reason : Blood Pressure : / mmHG Vent. Rate : 093 BPM Atrial Rate : 093 BPM P-R Int : 200 ms QRS Dur : 080 ms QT Int : 408 ms P-R-T Axes : 052 034 049 degrees QTc Int : 507 ms Normal sinus rhythm Prolonged QT Abnormal ECG Confirmed by [facility] [id number]), editor index DAMIEN ZUNIGA ([id number]) on 11/17/2018 1:06:59 AM Referred By: Confirmed By:[facility]
[2018-11-17 06:24] LABS: #Basophils 0.1 thou/uL (0.0-0.2); #Eosinphils 0.2 thou/uL (0.0-0.7); #Monocytes 0.7 thou/uL (0.11-0.59); #Neutrophils 7.1 thou/uL (1.40-6.50); %Basophils 0.6 % (0.0-1.0); %Eosinophils 2.1 % (0.0-10.0); %Lymphocytes 19.9 % (21.0-51.0); %Monocytes 6.6 % (0.0-10.0); %Neutrophils 70.7 % (42.0-75.0); Hemoglobin 10.9 g/dL (14.0-18.0); Mean Corpuscular HGB CONC 32.2 g/dL (32.0-36.0); Mean Corpuscular Hemoglobin 28.4 pg (27.0-31.0); Mean Corpuscular Volume 88.4 fL (78.0-98.0); Mean Platelet Volume 6.8 fL (7.4-10.4); Platelet Count 212 thou/uL (130-400); RBC Distribution Width 15.2 % (11.5-14.5); Red Blood Cell (RBC) Count 3.82 mill/uL (4.70-6.10)
[2018-11-17 06:34] LABS: Anion Gap 11 mmol/L (10-20); BUN (Urea Nitrogen) 15 mg/dL (8.4-25.7); Calc. Creatinine Clearance 59 mL/min (70-130); Calcium 8.4 mg/dL (7.8-10.44); Carbon Dioxide 21 mmol/L (23-31); Chloride 111 mmol/L (98-107); Estimated GFR-MDRD 53; Glucose 97 mg/dL (83-110); Potassium 4.5 mmol/L (3.5-5.1); Sodium 138 mmol/L (136-145)
[2018-11-17] MEDS: Multivitamin W/ Minerals 1 TAB PO SCH (08:06)
[2018-11-17] MEDS: Cyanocobalamin (Vitamin B-12) 1,000 MCG TAB PO SCH (08:06)
[2018-11-17] MEDS: Aspirin 81 mg Enteric Coated Tablet PO SCH (08:06)
[2018-11-17 11:32] VITALS: BP 136/63; TEMP 97.9
--- NOTE | 2018-11-18 00:55 | DIS ---
DATE OF ADMISSION: 11/15/2018 DATE OF DISCHARGE: 11/17/2018 DISCHARGE DIAGNOSES: 1. Syncope. 2. Hypovolemic shock secondary to dehydration. 3. Dehydration. 4. Diarrhea. 5. Acute renal failure. 6. Leukocytosis. 7. Lactic acidosis. HISTORY OF PRESENT ILLNESS: This patient is a 78-year-old male, who presented initially via the emergency department with episode of syncope. He has chronic medical problems including GERD, hyperlipidemia, hypertension, had an episode of diaphoresis and syncope. In the emergency room, he was found to be hypotensive with a systolic in the 50s. The patient also reported significant episodes of diarrhea. Initial labs rather showed white count of 6.1. BUN was 22, creatinine 1.63 above his baseline of 1.4. Lactic acid was 5.9. HOSPITAL COURSE: The patient was admitted to the hospital with hypotension, syncope, and diarrheal illness. He was initially placed in the ICU. When seen in consultation by Pulmonary Critical Care, it was felt the patient was having hypovolemic shock secondary to having been out working in the heat and diarrheal illness. He received aggressive rehydration. His renal function normalized, his blood pressure improved, and he was able to leave the ICU and go to the floor. There, the patient continued hydration, so he was voiding a significant amount. His diarrhea rather than slowed and then ultimately completely resolved. He was eating and drinking, ambulating with no further symptoms. His GFR ultimately was 53. There was no prior values to determine whether this was chronic or more acute in nature. PHYSICAL EXAMINATION: VITAL SIGNS: On the day of discharge, temperature was 97.9, pulse 70, respirations 18, O2 saturation 100% on room air, BP was 136/63. GENERAL: He was awake, alert, oriented, pleasant, and cooperative. HEART: Regular rate and rhythm. No murmurs, gallops, or rubs. LUNGS: Clear bilaterally. ABDOMEN: Soft, nontender, and nondistended with positive bowel sounds. EXTREMITIES: No cyanosis, clubbing, or edema. LABORATORY DATA: Stool studies were negative with the exception of heme-positive stool, which was felt to be due to just the severe nature of the diarrhea and chronicity, not because of the significant GI bleed. The patient's hemoglobin dropped from 13.3 to 10.9 with a large volume hydration thought to be dilutional. DISPOSITION: The patient was stable and felt comfortable, eager to go home. He is discharged to home. He is to avoid excessive exercise and excessive BP. He has no dietary restrictions. He is to continue to push fluids at home. He will be on omeprazole, multivitamin, Altoprev, Zestril, low-dose aspirin, B12. FOLLOWUP: He is to follow up with his primary care provider, Dr. Batista and he is to follow up with Dr. Sinha in 2 to 3 weeks as well. He can return to the hospital should he have any problems prior to that time. TIME SPENT: Total time spent in discharge activities including [id number] time with the patient was 31 minutes. Job ID: [id number]
--- NOTE | 2018-11-18 08:56 | CON ---
DATE OF CONSULTATION: 11/15/2018 REASON FOR CONSULTATION: Severe anemia, hematochezia. HISTORY OF PRESENT ILLNESS: Mr. Nash Hendricks is a very pleasant 78-year-old male, hospitalized because of hypotension, shock, and also severe watery diarrhea. The patient has markedly improved since admission. On arrival to the ER this morning, his blood pressure was 50 systolic. He has received almost 5 L of fluid. Now his blood pressure has come back to normal. At the present time, he is awake, alert, oriented to time, place, and person. His vital signs are very stable. Pulse is 70, blood pressure is 120/76. The patient tells me normally he has a stool every day. However, over the last several days, he has been constipated. Apparently, he took 2 Ex-Lax tablets yesterday and then he started having multiple stools. Before he went to bed yesterday, he had 4 stools. The stools were soft and watery. He had no abdominal pain. The patient went to sleep and this morning he woke up and felt very dizzy and almost passed out. He said he did not have nausea, but he almost fainted. He also started having severe watery stools. He tells me he passed a very large amount of liquid stool. The patient denied any abdominal pain. No nausea. No vomiting. No history of fever or chills. There is no history of recent antibiotic intake. No history of recent travel outside the country. No similar episodes in the past. The patient had a rectal tube placed because of severe watery diarrhea. Initially, the stools were watery and did not have any blood or any tarry stools. However, subsequently in the ICU started passing some blood-stained stool in the rectal tube and colostomy. The rectal tube was removed. He had one large bloody bowel movement and subsequently had another small bloody stool. The patient had again no abdominal pain. No fever or chills. The patient used to see Dr. Arjun Sinha before and has seen Dr. Sinha in the past in December 2017 and had a colonoscopy and polypectomy. He had removed. He also has history of esophageal stricture, has had dilation done by Dr. Sinha in the past. At the present time, the patient denies any abdominal pain. No nausea or vomiting. No dysphagia or odynophagia. He has no other known history. ALLERGIES: NONE. SOCIAL HISTORY: The patient is . He does not smoke or drink alcohol. MEDICAL ILLNESSES: 1. Chronic acid reflux. 2. Hypertension. 3. Hyperlipidemia. 4. Colon polyp. 5. Esophageal stricture. PAST SURGICAL HISTORY: 1. Left knee replacement. 2. He had a left breast mass removed in [address] Zhou Cherry and biopsy with no malignancy. 3. Colonoscopy and polypectomy. 4. EGD and dilation in the past. 5. Cervical fusion in 2014. 6. Lumbar diskectomy in 2016. FAMILY HISTORY: No family history of any coronary artery disease, CVA, or cancer. MEDICATION LIST: Reviewed. REVIEW OF SYSTEMS: A 10-point system review; POULTRY EVISCERATOR: History of syncope this morning and also felt dizzy. No TIA. No seizure disorder. No chronic headache. HEAD: No pain or injury. EYES: No diplopia. No impaired vision. EARS: No ear pain. No bleeding. NOSE: No nosebleed. THROAT: No sore throat. No dysphagia. LUNGS: No chronic coughing. No hemoptysis. No dyspnea. CARDIOVASCULAR: No chest pain. No palpitation. No dyspnea, orthopnea, or PND. GI: Severe diarrhea started this morning and initially the stools were watery, but now it has become bloody. He also has some abdominal pain over the left lower quadrant. No fever or chills. No nausea, no vomiting. GENITOURINARY: No dysuria, hematuria, or frequency of urination. MUSCULOSKELETAL: Unknown. NEUROENDOCRINE: Unknown. HEMATOLOGICAL: Unknown. NEUROPSYCHIATRY: Not relevant. PHYSICAL EXAMINATION: GENERAL: He is awake, alert, and communicative. Appears very comfortable. He is in no distress. VITAL SIGNS: Stable. His pulse is 76 and blood pressure 120/70. HEENT: Conjunctivae clear. NECK: Supple. No adenitis or thyromegaly noted. CARDIOVASCULAR: First and second heart sounds heard. LUNGS: Clear to auscultation. ABDOMEN: Soft. Abdomen is nondistended. Abdomen is mildly tender over the left lower quadrant. There is no rebound or guarding. No organomegaly or masses. Bowel sounds are normal. EXTREMITIES: No edema. LABORATORY DATA: CBC; WBC 8300, hemoglobin 11.9, hematocrit 36.3, MCV is normal, platelet count is 238,000. Chem-7, sodium 136, potassium 4.4, chloride 105, bicarb is 21, BUN is 24, creatinine 1.41. Liver function tests normal. Cardiac enzymes, troponin level is normal. EKG shows no acute findings. Head CT scan was basically normal. On admission this morning, hemoglobin hematocrit 40.6, MCV 87.3. WBC 6.1. Lactic acid 3.5, dropped to 2.3 subsequently. Troponin 0.46. Sodium 138, potassium 3.6, chloride 110, bicarb 15, BUN is 22, creatinine is 1.62, glucose 176, lactic acid 5.8 dropping to 2.6, calcium 8.4, bilirubin is 0.3, AST, ALT and alkaline phosphatase normal. Albumin is 3.1. CLINICAL IMPRESSION: 1. A 78-year-old male was constipated for a couple of days and took laxatives yesterday. He developed loose stools last night and he had 4 stools yesterday. This morning, he woke up and had a near fainting spell and was having severe watery diarrhea and he was hypotensive on arrival. With fluid resuscitation, his BP is now back to normal. Initially his stool was watery, now he has had 2 bloody stools. His abdominal exam is very benign, except for mild tenderness over the left lower quadrant. 2. Chronic acid reflux. 3. Hyperlipidemia. 4. Hypertension. 5. Colon polyp. 6. Esophageal stricture and dilatation. Overall impression based on the history, I believe the patient will be having ischemic colitis. The ischemic colitis can present with severe watery diarrhea, and also bloody diarrhea. The patient had colonoscopy about 10 months ago. He had 2 polyps removed. diarrhea. RECOMMENDATIONS: 1. Clear liquid diet. 2. Follow up labs. 3. Agree with stool studies for culture etc. 4. He had screening colonoscopy in December 2017. I believe he does need another repeat colonoscopy. We will treat him symptomatically at the present time. If the stool culture comes positive for any bacteria, we may treat accordingly. In the meantime, we would recommend IV fluids, advance diet as tolerated and also have followup Chem-7 and also CBC. Job ID: [id number]
== END 2018-11-17 13:25 | disposition home or self-care (01) | DRG 314 ==
LOC: ERS 03:56 → CCU 05:17 → 2NO 21:07
PROVIDERS: ADMIT Hospitalist; ATTEND Hospitalist
DX: I95.9 Hypotension, unspecified (principal); R57.1 Hypovolemic shock; N17.9 Acute kidney failure, unspecified; E87.2 Acidosis; E86.0 Dehydration; R19.7 Diarrhea, unspecified; D72.829 Elevated white blood cell count, unspecified; Z96.652 Presence of left artificial knee joint; I12.9 Hypertensive chronic kidney disease with stage 1 through stage 4 chronic kidney disease, or unspecified chronic kidney disease; N18.3 Chronic kidney disease, stage 3 (moderate); K21.9 Gastro-esophageal reflux disease without esophagitis; E78.5 Hyperlipidemia, unspecified; Z86.010 Personal history of colon polyps
CPT/HCPCS: 36415; 70450; 71045; 80048; 80053; 81003; 81015; 82274; 82533; 82550; 82553; 83605; 83630; 83735; 83880; 84484; 85025; 87040; 87045; 87046; 87324; 87328; 87329; 87449; 87899; 93005; J1720; J2543; J3370

== ENCOUNTER 2020-03-29 08:32 | Outpatient (CLI) | payer MEDICARE, OTHER ==
--- NOTE | 2020-03-29 09:03 | RAD ---
LUMBAR SPINE 4 VIEWS: Date: 03/29/2020 HISTORY: Low back pain, lumbar stenosis with neurogenic claudication. COMPARISON: 10/04/2017. FINDINGS: Postop laminectomy and pedicle screw placement changes at L4-L5 with some minimal stable anterolisthe sis. No evidence for abnormal translation between flexion and extension. Stable mild vertical height loss of L2. IMPRESSION: Stable exam. No abnormal translation between flexion and extension. POS: RRE
[2020-03-29] MEDS ORDERED: Magnevist 469MG/ML 20 ML VIAL ONE (09:15)
--- NOTE | 2020-03-29 10:54 | MRI ---
MRI LUMBAR SPINE WITH AND WITHOUT IV CONTRAST: INDICATION: Lumbar stenosis with neurogenic claudication. Low back pain. History of lumbar surgery. COMPARISON: Comparison is made to MRI lumbar spine dated 12/21/2016. FINDINGS: Postoperative changes are noted which have occurred since the prior exam. Pedicle screws are now see n at L4 and L5 which have been placed since the prior study. There is mild central and anterior compression of the L2 vertebra which is a stable finding. The oth er visualized vertebrae maintain height. Degenerative changes are noted with anterior and lateral os teophytes which appear stable. There are degenerative disk changes at all levels. The disk spaces a re relatively well preserved. No evidence of vertebral body edema. L1-2: Mild disk bulge similar to the prior exam. No significant central canal or foraminal stenosis . L2-3: Broad-based disk bulge slightly more prominent than on the prior study. This flattens the ant erior thecal sac. There is facet hypertrophy. Mild to moderate central canal stenosis. Bilateral f oraminal encroachment due to the diffuse disk bulge and facet hypertrophy. L3-4: Broad-based disk bulge is similar to the prior exam. Facet hypertrophy. Moderate central can al stenosis appears similar to the prior study. Bilateral foraminal encroachment due to the diffuse disk bulge and facet hypertrophy, similar to the prior exam. Pedicle screws at L4 now noted. Exact position of pedicle screws is suboptimally evaluated on MRI. CT could better define pedicle screw position if clinically indicated. L4-5: Broad-based disk bulge abuts the thecal sac. Posterior laminectomy change. The synovial cyst noted on the right on prior exam is no longer present. Mild central canal stenosis. The diffuse di sk bulge results in bilateral foraminal encroachment, more pronounced on the right. There appears to be contact with the exiting right L4 nerve root within the foramina. Pedicle screws are seen at L5. L5-S1: Postop change and posterior laminectomy change. No significant central canal stenosis. No d efinite foraminal stenosis, although artifact from the pedicle screws obscures the foramina. There is some mild anterolisthesis at L4-5 which has progressed since the prior exam. IMPRESSION: Postoperative changes with pedicle screws at L4-5 since the prior study. Mild anterolisthesis at L4- 5 is now seen. Description at each level as above. POS: AGW
== END 2020-03-29 08:33 | disposition home or self-care (01) ==
LOC: TBSIIMAG 08:32
PROVIDERS: ATTEND Neurological Surgery
DX: M48.062 Spinal stenosis, lumbar region with neurogenic claudication (principal); M43.16 Spondylolisthesis, lumbar region; M51.86 Other intervertebral disc disorders, lumbar region; M89.38 Hypertrophy of bone, other site; Z98.890 Other specified postprocedural states
CPT/HCPCS: 72110; 72158; 82565; A9579

== ENCOUNTER 2020-06-11 07:16 | Outpatient (CLI) | payer MEDICARE ==
[2020-06-11 22:14] LABS: SARS-CoV-2 PCR by NAA Not Detected (NotDetected)
== END 2020-06-11 07:17 | disposition home or self-care (01) ==
LOC: LABBT 07:16
PROVIDERS: ATTEND Neurological Surgery
DX: Z01.818 Encounter for other preprocedural examination (principal); M48.061 Spinal stenosis, lumbar region without neurogenic claudication; Z20.822 Contact with and (suspected) exposure to COVID-19
CPT/HCPCS: 93005; U0003; U0005; 87635; 93010

== ENCOUNTER 2020-06-16 07:18 | Day surgery (SDC) | payer MEDICARE ==
[2020-06-14 13:54] VITALS: BMI 26.5
--- NOTE | 2020-06-15 10:26 | HP ---
HISTORY OF PRESENT ILLNESS: Mr. Hendricks is known to us for multiple prior lumbar decompressions and fusion now, who returns with 2 to 3 months of severe worsening lower back pain with claudication as well as what he describes in his legs. He has been trialing home exercise and stretches with little improvement. He has no numbness that he can discern. New MRI of the lumbar spine reveals moderate central canal stenosis at L3-4, which is a level adjacent to his fusion. No abnormal motion on flexion-extension x-rays. He has trialed epidural steroid injections with limited relief and hopes to move forward rather with just surgical correction. PAST MEDICAL HISTORY: Significant for hypertension, hypercholesterolemia, ischemic colitis, erectile dysfunction, chronic neck and lower back problem, esophageal stricture. PAST SURGICAL HISTORY: Knee replacement on the left, ACDF, lumbar diskectomy, lumbar fusion. CURRENT MEDICATIONS: 1. Prilosec. 2. Aspirin. 3. Vitamin B. 4. Vitamin D. 5. Lisinopril. 6. Etodolac. 7. Lovastatin. ALLERGIES: NO KNOWN DRUG ALLERGIES. PHYSICAL EXAMINATION: Deferred for telehealth visit. ASSESSMENT: Lumbar stenosis with radiculopathy. PLAN: Dr. Sandoval met with the patient, reviewed imaging and advocated for a right L3-L4 decompression. He explained to the patient the risks, benefits, and alternatives to the procedure. The patient expressed understanding and elected to move forward with surgery as discussed. I do believe the patient is mentally competent and capable of making medical decisions for himself. We will move forward with surgery as planned. Job ID: [id number]
[2020-06-16] MEDS ORDERED: Bupivacaine PF 0.5% 30 ML VIAL ONE (08:04)
[2020-06-16] MEDS ORDERED: EPINEPHrine 1 MG/ML AMP ONE (08:04)
[2020-06-16] MEDS ORDERED: Fentanyl 100 MCG/2 ML VIAL ONE (08:43)
[2020-06-16] MEDS ORDERED: Rocuronium Bromide 10 MG/ML (10ML VIAL) ONE (09:04)
[2020-06-16] MEDS ORDERED: PROPOFOL 200 MG/20 ML VIAL ONE (09:04)
[2020-06-16] MEDS ORDERED: Glycopyrrolate 0.2 MG/ML 5 ML SYRINGE ONE (09:04)
[2020-06-16] MEDS ORDERED: Ondansetron PF 4 MG/2 ML Vial ONE (09:04)
[2020-06-16] MEDS ORDERED: Dexamethasone 20 MG/5 ML VIAL ONE (09:04)
[2020-06-16] MEDS ORDERED: PHENYLEPHRINE-NS 100 MCG/ML 10 ML SYRINGE ONE (09:04)
[2020-06-16] MEDS ORDERED: Lidocaine 1% PF 5 ML VIAL ONE (09:04)
--- NOTE | 2020-06-16 10:38 | OP ---
DATE OF PROCEDURE: 06/16/2020 FRONT END SPECIALIST: Andry Elkins PA-C. INDICATION: Pain. DIAGNOSIS: Lumbar radiculopathy. PROCEDURE PERFORMED: Right L3-L4 decompression. ANESTHESIA: General. DESCRIPTION OF PROCEDURE: The patient was brought into the operating room and placed under general anesthesia. He was flipped from the supine to prone position on the operating room table. A linear incision was planned at the L3-L4 segment. After prepping and draping and after an appropriate preoperative pause, the incision was created and the soft tissues were swept right of midline. A self-retaining retractor was placed and the C-arm images were obtained. After confirming the appropriate level with C-arm fluoroscopy, high-speed cutting drill bit as well as 2, 3, and 4 mm Kerrisons were used to perform a laminectomy along the inferior aspect of L3 and the superior aspect of L4. The laminectomy was extended laterally to encompass the medial aspect of the facet joint in order to adequately decompress the lateral recesses. After completing the decompression, the wound was irrigated. Hemostasis was maintained throughout. The wound was then closed in anatomic layers, and a pressure dressing was applied. There were no known procedural complications. Job ID: [id number]
[2020-06-16] MEDS ORDERED: Tamsulosin HCl 0.4 MG CAP ONE (10:55)
== END 2020-06-16 12:50 | disposition home or self-care (01) ==
LOC: SDC 07:18
PROVIDERS: ATTEND Neurological Surgery
PROC: 01NB0ZZ Release Lumbar Nerve, Open Approach (ICD-10-PCS; principal; 2020-06-16)
DX: M54.16 Radiculopathy, lumbar region (principal); M48.061 Spinal stenosis, lumbar region without neurogenic claudication; I10 Essential (primary) hypertension; E78.00 Pure hypercholesterolemia, unspecified; E78.5 Hyperlipidemia, unspecified; K55.9 Vascular disorder of intestine, unspecified; Z79.82 Long term (current) use of aspirin; Z79.899 Other long term (current) drug therapy; Z96.652 Presence of left artificial knee joint
CPT/HCPCS: 76000; J0171; J0690; J1100; J2405; J2704; J3010; S0020

== ENCOUNTER 2021-03-25 08:29 | Outpatient (CLI) | payer MEDICARE ==
[2021-03-25 11:25] LABS: Hemoglobin 10.8 g/dL (13.5-17.5); Mean Corpuscular HGB CONC 30.6 g/dL (32.0-36.0); Mean Corpuscular Volume 78.4 fl (81.2-95.1); Platelet Count 336 10x3/uL (150-450); RBC Distribution Width 17.5 % (11.5-14.5); White Blood Cell (WBC) Count 4.5 10x3/uL (3.5-10.5)
[2021-03-25 11:40] LABS: Anion Gap 13 mmol/L (10-20); BUN (Urea Nitrogen) 23 mg/dL (8.4-25.7); Calc. Creatinine Clearance 0 mL/min (70-130); Calcium 8.9 mg/dL (7.8-10.44); Carbon Dioxide 22 mmol/L (23-31); Chloride 107 mmol/L (98-107); Glucose 110 mg/dL (83-110); Potassium 4.4 mmol/L (3.5-5.1); Sodium 138 mmol/L (136-145)
[2021-03-25 18:08] LABS: SARS-CoV-2 PCR by NAA Not Detected (NotDetected)
== END 2021-03-25 08:30 | disposition home or self-care (01) ==
LOC: LABBT 08:29
PROVIDERS: ATTEND Neurological Surgery
DX: Z01.812 Encounter for preprocedural laboratory examination (principal); M43.16 Spondylolisthesis, lumbar region; M54.50 Low back pain, unspecified; Z20.822 Contact with and (suspected) exposure to COVID-19
CPT/HCPCS: 80048; 85027; U0003; U0005

== ENCOUNTER 2021-03-30 07:58 | Day surgery (SDC) | payer MEDICARE ==
[2021-03-29 10:57] VITALS: BMI 26.5
[2021-03-30] MEDS ORDERED: Bupivacaine PF 0.5% 30 ML VIAL ONE (08:26)
[2021-03-30] MEDS ORDERED: EPINEPHrine 1 MG/ML AMP ONE (08:26)
[2021-03-30] MEDS ORDERED: ceFAZolin Sodium (SDC) 2 GM/100 ML BAG ONE ×2 (08:38→12:44)
[2021-03-30] MEDS ORDERED: Fentanyl 250 MCG/5 ML VIAL ONE (08:56)
[2021-03-30] MEDS ORDERED: Dexmedetomidine 200 MCG/2 ML VIAL ONE (08:56)
[2021-03-30] MEDS ORDERED: Lidocaine 1% PF 5 ML VIAL ONE (09:08)
[2021-03-30] MEDS ORDERED: Ondansetron PF 4 MG/2 ML Vial ONE (09:08)
[2021-03-30] MEDS ORDERED: PROPOFOL 200 MG/20 ML VIAL ONE (09:08)
[2021-03-30] MEDS ORDERED: Rocuronium Bromide 10 MG/ML (10ML VIAL) ONE (09:08)
[2021-03-30] MEDS ORDERED: Dexamethasone 20 MG/5 ML VIAL ONE (09:08)
[2021-03-30] MEDS ORDERED: SUGAMMADEX SODIUM 200 MG/2 ML VIAL ONE (09:52)
[2021-03-30] MEDS ORDERED: Fentanyl 100 MCG/2 ML VIAL ONE (11:01)
[2021-03-30] MEDS ORDERED: tiZANidine HCl 4 MG TAB ONE (11:20)
[2021-03-30] MEDS ORDERED: Tamsulosin HCl 0.4 MG CAP ONE (11:20)
== END 2021-03-30 14:20 | disposition home or self-care (01) ==
LOC: SDC 07:58
PROVIDERS: ATTEND Neurological Surgery
PROC: 0SG0071 Fusion of Lumbar Vertebral Joint with Autologous Tissue Substitute, Posterior Approach, Posterior Column, Open Approach (ICD-10-PCS; principal; 2021-03-30)
DX: M48.061 Spinal stenosis, lumbar region without neurogenic claudication (principal); M54.16 Radiculopathy, lumbar region; M43.16 Spondylolisthesis, lumbar region; I10 Essential (primary) hypertension; E78.00 Pure hypercholesterolemia, unspecified; Z79.82 Long term (current) use of aspirin; Z79.899 Other long term (current) drug therapy; Z95.1 Presence of aortocoronary bypass graft; Z98.1 Arthrodesis status
CPT/HCPCS: 76000; C1768; J0171; J0690; J1100; J2405; J2704; J3010; S0020

== ENCOUNTER 2021-05-21 09:31 | Emergency (ER) | payer OTHER, MEDICARE | END 2021-05-21 11:50 | disposition home or self-care (01) | LOC: ERS 09:31 | DX: S93.401A Sprain of unspecified ligament of right ankle, initial encounter (principal); I25.2 Old myocardial infarction; K21.9 Gastro-esophageal reflux disease without esophagitis; E78.5 Hyperlipidemia, unspecified; I10 Essential (primary) hypertension; W01.0XXA Fall on same level from slipping, tripping and stumbling without subsequent striking against object, initial encounter ==

== ENCOUNTER 2021-05-30 09:51 | Outpatient (CLI) | payer MEDICARE | END 2021-05-30 09:52 | disposition home or self-care (01) | LOC: TBSIIMAG 09:51 | PROVIDERS: ATTEND Neurological Surgery | DX: M54.50 Low back pain, unspecified (principal) | CPT/HCPCS: 72020 ==

== ENCOUNTER 2022-03-01 10:56 | Outpatient (CLI) | payer MEDICARE, BC | END 2022-03-01 10:57 | disposition home or self-care (01) | LOC: LABBT 10:56 | PROVIDERS: ATTEND Specialist | DX: Z01.810 Encounter for preprocedural cardiovascular examination (principal); M54.16 Radiculopathy, lumbar region; M96.1 Postlaminectomy syndrome, not elsewhere classified; G89.4 Chronic pain syndrome | CPT/HCPCS: 93005; 93010 ==

== ENCOUNTER 2022-03-06 08:44 | Day surgery (SDC) | payer MEDICARE ==
[2022-03-02 11:38] VITALS: BMI 26.4
[2022-03-06] MEDS ORDERED: Midazolam HCl 2 mg/2 ml Vial ONE (10:27)
[2022-03-06] MEDS ORDERED: Propofol 500 MG/50 ML VIAL ONE ×2 (10:27→12:45)
[2022-03-06] MEDS ORDERED: fentaNYL Citrate/PF 100 MCG/2 ML SYRINGE ONE ×2 (10:27→12:45)
[2022-03-06] MEDS ORDERED: Bupivacaine PF 0.5% 30 ML VIAL ONE (10:31)
[2022-03-06] MEDS ORDERED: EPINEPHrine 1 MG/ML AMP ONE (10:31)
[2022-03-06] MEDS ORDERED: methylPREDNISolone Acetate 40 mg/ml Vial ONE (10:31)
[2022-03-06] MEDS ORDERED: CEFAZOLIN 2 GM VIAL ONE (12:56)
[2022-03-06] MEDS ORDERED: Sodium Chloride 0.9% 100 ML ONE (12:56)
[2022-03-06] MEDS ORDERED: PHENYLEPHRINE-NS 100 MCG/ML 10 ML SYRINGE ONE (13:44)
== END 2022-03-06 15:50 | disposition home or self-care (01) ==
LOC: SDC 08:44
PROVIDERS: ATTEND Specialist
PROC: 0JH70DZ Insertion of Multiple Array Stimulator Generator into Back Subcutaneous Tissue and Fascia, Open Approach (ICD-10-PCS; principal; 2022-03-06)
PROC: 00HV3MZ Insertion of Neurostimulator Lead into Spinal Cord, Percutaneous Approach (ICD-10-PCS; 2022-03-06)
DX: M96.1 Postlaminectomy syndrome, not elsewhere classified (principal); G89.4 Chronic pain syndrome; M54.16 Radiculopathy, lumbar region; I25.10 Atherosclerotic heart disease of native coronary artery without angina pectoris; I25.2 Old myocardial infarction; E78.00 Pure hypercholesterolemia, unspecified; N52.9 Male erectile dysfunction, unspecified; I12.9 Hypertensive chronic kidney disease with stage 1 through stage 4 chronic kidney disease, or unspecified chronic kidney disease; N18.9 Chronic kidney disease, unspecified; R73.03 Prediabetes; Z79.82 Long term (current) use of aspirin; Z79.899 Other long term (current) drug therapy; Z95.1 Presence of aortocoronary bypass graft
CPT/HCPCS: 72020; C1713; C1767; C1778; C1787; J0171; J1030; J2250; J2704; J3490; S0020

== ENCOUNTER 2022-06-01 12:34 | Outpatient (CLI) | payer MEDICARE | END 2022-06-01 12:35 | disposition home or self-care (01) | LOC: BICCT 12:34 | PROVIDERS: ATTEND Otolaryngology Otolaryngic Allergy | DX: H92.12 Otorrhea, left ear (principal); H70.92 Unspecified mastoiditis, left ear; H74.8X1 Other specified disorders of right middle ear and mastoid; M79.89 Other specified soft tissue disorders | CPT/HCPCS: 70480 ==

== ENCOUNTER 2024-05-23 08:22 | Outpatient (CLI) | payer MEDICARE ==
[2024-05-23] MEDS ORDERED: Iopamidol 370 76% 100 ML VIAL ONE (14:46)
== END 2024-05-23 08:23 | disposition home or self-care (01) ==
LOC: BICCT 08:22
PROVIDERS: ATTEND Family Medicine
DX: R10.9 Unspecified abdominal pain (principal); I25.84 Coronary atherosclerosis due to calcified coronary lesion; I25.10 Atherosclerotic heart disease of native coronary artery without angina pectoris
CPT/HCPCS: 36415; 74177; 82565; Q9967